=== PATIENT | male | born 1985 | race Caucasian/White ===

== ENCOUNTER 2017-04-04 18:16 | Emergency (ER) | payer SELFPAY ==
[~2017-04-04] VITALS: Ht 172.7 cm; Wt 81.8 kg
[~2017-04-04 18:16] MED LIST: CLIN150 PO; TRAM50 PO; [UNRECOGNIZED DRUG - CODE] PO
[2017-04-04 18:17] VITALS: BP 168/102; PULSE 85; RESP 16; TEMP 98.2; O2SAT 99
[2017-04-04] MEDS ORDERED: NORC5TAB PO (21:47)
[2017-04-04] MEDS ORDERED: CYCL5TAB PO (21:47)
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
--- NOTE | 2017-04-04 22:32 | RADRPT ---
EXAM DATE/TIME: 04/04/2017 22:23 [place] COMPARISON: No previous studies available for comparison. INDICATIONS : Constipation, abdominal pain for 5 days MEDICAL HISTORY : None. SURGICAL HISTORY : None. ENCOUNTER: Initial ACUITY: 4 - 6 days PAIN SCORE: 10/10 LOCATION: Bilateral abdomen FINDINGS: A single erect view of the abdomen demonstrates the lower lungs to be clear. Scattered gas and stool in the colon. No evidence of free air. Osseous structures within normal limits. CONCLUSION: Bowel gas pattern within normal image. No evidence of free air. Wm Tariq MD on April 04, 2017 at 22:29 Board Certified Radiologist. This report was verified electronically.
== END 2017-04-04 23:23 | disposition home or self-care (01) ==
LOC: NEPD 18:16
DX: K59.03 Drug induced constipation (principal); T40.2X5A Adverse effect of other opioids, initial encounter; Z72.0 Tobacco use
CPT/HCPCS: 74018; 99283